=== PATIENT | female | born 1990 | race Caucasian/White ===

== ENCOUNTER 2018-08-26 12:43 | Outpatient (CLI) | payer BC ==
[2018-08-26] MEDS ORDERED: IOHEXOL 50 ML IV ONE (13:10)
== END 2018-08-26 20:25 | disposition home or self-care (01) ==
LOC: SRD 12:43
PROVIDERS: ATTEND Obstetrics & Gynecology
DX: Z31.41 Encounter for fertility testing (principal)
CPT/HCPCS: 74740; C1751; Q9967

== ENCOUNTER 2022-06-22 08:40 | Day surgery (SDC) | payer BC ==
[~2022-06-22] VITALS: Ht 165.1 cm; Wt 95.3 kg
[2022-06-22 08:54] LABS: HCG,QUAL RESULT NEGATIVE (NEGATIVE)
[2022-06-22] MEDS ORDERED: fentaNYL CITRATE 250 MCG/5 ML AMP IV ONE (10:12)
[2022-06-22] MEDS ORDERED: NS 1000 ML IV.SOLN IV ONE (10:12)
[2022-06-22] MEDS ORDERED: LR 1,000 ML IV.SOLN IV ONE (10:12)
[2022-06-22] MEDS ORDERED: DEXAMETHASONE SOD PHOSPHATE 4 MG/ML VIAL IVP ONE (10:12)
[2022-06-22] MEDS ORDERED: WATER FOR IRRIGATION,STERILE 1,000 ML IRRIG.SOLN IR ONE (10:12)
[2022-06-22] MEDS ORDERED: ROCURONIUM BROMIDE 10 MG/ML (ZEMURON) IV ONE (10:12)
[2022-06-22] MEDS ORDERED: KETOROLAC TROMETHAMINE 30 MG VIAL IVP ONE (10:12)
[2022-06-22] MEDS ORDERED: SUCCINYLCHOLINE CHLORIDE 20 MG/ML(QUELICIN) IVP ONE (10:12)
[2022-06-22] MEDS ORDERED: GLYCOPYRROLATE 0.2 MG/ML VIAL IJ ONE (10:12)
[2022-06-22] MEDS ORDERED: ONDANSETRON HCL 4 MG/2 ML VIAL IVP ONE (10:12)
[2022-06-22] MEDS ORDERED: SEVOFLURANE 15 MIN GAS INH ONE (10:12)
[2022-06-22] MEDS ORDERED: HYDROmorphone 1 MG/ML INJ. CARTRIDGE IVP PRN (14:00)
[2022-06-22] MEDS ORDERED: LABETALOL 100 MG/ 20ML VIAL IVP PRN (14:00)
[2022-06-22] MEDS ORDERED: hydrALAZINE HCL 20 MG/ML VIAL IVP PRN (14:00)
[2022-06-22] MEDS ORDERED: LR 1,000 ML IV SCH (14:00)
[2022-06-22] MEDS ORDERED: ONDANSETRON HCL 4 MG/2 ML VIAL IVP PRN (14:30)
[2022-06-22] MEDS ORDERED: HYDROcodone/ACETAMIN 5-325 MG TAB (NORCO/ VICODIN) PO PRN (14:30)
[2022-06-22] MEDS ORDERED: ONDANSETRON 4 MG ODT TAB PO PRN (14:30)
[2022-06-22 14:31] VITALS: BP_SYST 118
== END 2022-06-22 15:45 | disposition home or self-care (01) ==
LOC: SDS 08:40 → SMU 08:41 → SDS 15:45
PROVIDERS: ATTEND Otolaryngology
DX: J34.2 Deviated nasal septum (principal); J34.3 Hypertrophy of nasal turbinates; J35.2 Hypertrophy of adenoids; J31.0 Chronic rhinitis; E66.01 Morbid (severe) obesity due to excess calories; Z90.49 Acquired absence of other specified parts of digestive tract; Z79.899 Other long term (current) drug therapy; Z20.822 Contact with and (suspected) exposure to COVID-19
CPT/HCPCS: 36415 ×2; 30520; 30140; 42831; 84703; 87426; U0003; J1100; J3490; J1885; J2405; J0330; J3010; J7120; J7030